=== PATIENT | female | born 1985 | race Caucasian/White ===

== ENCOUNTER → 2016-06-19 | Outpatient (CLI) | payer OTHER ==
[~2016-06-19] MED LIST: GABA100C4 PO; LAMO150 PO; NORG1TAB2 PO; OXCA150T PO; Z.0.BCPILL PO
[2016-06-19 13:24] LABS: HEMATOCRIT 38.9 % (35.0-46.0); MEAN CELL VOLUME 91.1 FL (80.0-100.0); MEAN CORPUSCULAR HEMOGLOBIN 31.2 PG (27.0-34.0); MEAN CORPUSCULAR HGB CONC 34.3 % (32.0-36.0); PLATELET COUNT 195 TH/MM3 (150-450); RED BLOOD COUNT 4.27 MIL/MM3 (4.00-5.30); RED CELL DISTRIBUTION WIDTH 12.6 % (11.6-17.2); REVIEW FLAG FINAL; WHITE BLOOD COUNT 7.7 TH/MM3 (4.0-11.0)
== END ==
LOC: PHPRE 11:36
PROVIDERS: ATTEND Obstetrics & Gynecology
DX: Z01.812 Encounter for preprocedural laboratory examination (principal); N94.4 Primary dysmenorrhea; G40.909 Epilepsy, unspecified, not intractable, without status epilepticus; N94.10 Unspecified dyspareunia
CPT/HCPCS: 36415; 80175; 80183; 85027

== ENCOUNTER → 2016-06-21 | Day surgery (SDC) | payer OTHER ==
[~2016-06-21] VITALS: Ht 165.1 cm; Wt 51.8 kg
[~2016-06-21] MED LIST changes: +KETOROLAC TROMETHAMINE 30 MG/ML (IVP) VIAL IV PUSH ONE; +LACTATED RINGER'S 1000 ML INJ 1,000 ML ONE; +MIDAZOLAM HCL 2 MG/2 ML VIAL ONE; +NEOSTIGMINE 3 MG/3 ML SYR IV ONE; +ONDANSETRON HCL 4 MG/2 ML VIAL IM PRN; +ONDANSETRON HCL 4 MG/2 ML VIAL IV PUSH ONE; +PROPOFOL 200 MG/20 ML AMP IV ONE; -Z.0.BCPILL PO; +fentaNYL CITRATE 250 MCG/5 ML AMP ONE; +oxyCODONE/ACETAMINOPHEN 5 MG/325 MG TAB ONE; +oxyCODONE/ACETAMINOPHEN 7.5 MG/325 MG TAB PO PRN
[2016-06-21 06:48] VITALS: BP 100/48; PULSE 68; RESP 20; TEMP 97.9; O2SAT 100
[2016-06-21 08:41] VITALS: PULSE 83; TEMP 97.9
[2016-06-21 09:00] VITALS: BP 115/66; PULSE 55; RESP 16; O2SAT 98
--- NOTE | 2016-06-21 10:23 | MP ---
cc: CARMEN PAGAN MD DATE OF SURGERY: 06/21/2016 PREOPERATIVE DIAGNOSIS Pelvic pain secondary deep dyspareunia. POSTOPERATIVE DIAGNOSIS Pelvic pain secondary deep dyspareunia, left pelvic varicosity. OPERATION Diagnostic laparoscopy. SURGEON Dr. Pagan. ANESTHESIA ___ general endotracheal. COMPLICATIONS None. ESTIMATED BLOOD LOSS 50 ccs. INDICATION This 1, para 1 has had progressive deep dyspareunia and increasing dysmenorrhea. The patient's history and exam were suspicious for endometriosis. FINDINGS At the time of surgery the patient was found to have a left pelvic varicosity retroperitoneal between her iliac vein and uterine vein. The exact origin of the vessel was difficult to determine laparoscopically. PROCEDURE The patient was taken to the operating room, placed supine on the operating table. After general endotracheal anesthetic she was prepped and draped in dorsal lithotomy position with low stirrups. An open-sided speculum was used to place a [id number] uterine manipulator. Attention was then turned to the abdomen. A 1 cm incision was made in the umbilicus. Veress needle was inserted. 5 liters of CO2 were instilled without difficulty. Laparoscopic trocar was introduced followed by the camera and using transillumination a left port was placed. Manipulation and a Trendelenburg position revealed the findings described above. Photographs were taken. The left port was removed under direct visualization and the camera port was removed after releasing the pneumoperitoneum. The incisions were closed with 3-0 Monocryl subcuticularly followed by Dermabond. The instrument was removed from the vagina and the patient was taken to the recovery room awake and breathing on her own. She tolerated the procedure well. Sponge, needle and instrument counts were correct. Carmen Pagan MD PMF/TLL /8:45 AM /10:09 AM
== END | disposition home or self-care (01) ==
LOC: PHSDC 06:10
PROVIDERS: ATTEND Obstetrics & Gynecology
DX: N94.12 Deep dyspareunia (principal); I86.2 Pelvic varices; G40.909 Epilepsy, unspecified, not intractable, without status epilepticus; Z88.8 Allergy status to other drugs, medicaments and biological substances; Z87.891 Personal history of nicotine dependence
CPT/HCPCS: 49320; J2250; J2405; J2710; J3010; J7120

== ENCOUNTER 2017-04-06 17:50 | Emergency (ER) | payer OTHER ==
[~2017-04-06] VITALS: Ht 165.1 cm; Wt 53.5 kg
[~2017-04-06 17:50] MED LIST changes: -KETOROLAC TROMETHAMINE 30 MG/ML (IVP) VIAL IV PUSH ONE; -LACTATED RINGER'S 1000 ML INJ 1,000 ML ONE; -MIDAZOLAM HCL 2 MG/2 ML VIAL ONE; -NEOSTIGMINE 3 MG/3 ML SYR IV ONE; -NORG1TAB2 PO; -ONDANSETRON HCL 4 MG/2 ML VIAL IM PRN; -ONDANSETRON HCL 4 MG/2 ML VIAL IV PUSH ONE; -PROPOFOL 200 MG/20 ML AMP IV ONE; -fentaNYL CITRATE 250 MCG/5 ML AMP ONE; -oxyCODONE/ACETAMINOPHEN 5 MG/325 MG TAB ONE; -oxyCODONE/ACETAMINOPHEN 7.5 MG/325 MG TAB PO PRN
[2017-04-06 17:57] VITALS: BP 127/63; PULSE 72; RESP 16; TEMP 98.3; O2SAT 100
[2017-04-06] MEDS ORDERED: PENI500T PO (19:09)
--- NOTE | 2017-04-06 19:09 | PD ---
HPI Chief Complaint: Oral / Dental Pain or Problem Time Seen by Provider: 18:46 Travel History International Travel<30 days: No Contact w/Intl Traveler<30days: No Traveled to known affect area: No History of Present Illness HPI This is a 31-year-old female here with right lower dental pain 3 days. Denies fever chills. Pain is at the site of a decayed and cracked tooth. Symptom severity is moderate. No aggravating or alleviating factors. Patient also believes she may be and is requesting testing. Denies abdominal pain, vaginal bleeding, vaginal discharge. PFSH Past Medical History Cancer: No Cardiovascular Problems: No Diabetes: No Diminished Hearing: No Endocrine: No Genitourinary: No Hepatitis: No Hiatal Hernia: No Immune Disorder: No Musculoskeletal: Yes (BACK PROBLEMS FROM ALL OF HER SEIZURE ACTIVITY) Neurologic: Yes (SEIZURES SINCE 14) Psychiatric: No Reproductive: No Respiratory: No Immunizations Current: Yes Seizures: Yes Thyroid Disease: No Tetanus Vaccination: Unknown Influenza Vaccination: No ?: Unknown LMP: ONE MONTH Past Surgical History Abdominal Surgery: Yes (laparoscopy) AICD: No Cardiac Surgery: No Ear Surgery: No Endocrine Surgery: No Eye Surgery: No Genitourinary Surgery: No Gynecologic Surgery: No Joint Replacement: No Oral Surgery: No Pacemaker: No Thoracic Surgery: No Social History Alcohol Use: No Tobacco Use: Yes (electic cigarrette) Substance Use: Yes (hx marijuana USE DAILY) Allergies-Medications (Allergen,Severity, Reaction): Coded Allergies: phenytoin (Unverified Allergy, Severe, Hives, 04/06/17) Reported Meds & Prescriptions Reported Meds & Active Scripts Active Reported Oxcarbazepine 150 Mg Tab 150 Mg PO BID Gabapentin 100 Mg Cap 500 Mg PO BID Lamictal (Lamotrigine) 150 Mg Tab 300 Mg PO BID Review of Systems Except as stated in HPI: all other systems reviewed are Neg General / Constitutional: No: Fever Physical Exam Narrative GENERAL: Alert and well-appearing 31-year-old female SKIN: Warm and dry. HEAD: Normocephalic. EYES: No injection or drainage. MOUTH: Widespread dental decay. Right lower premolar decayed with surrounding gum erythema. No swelling of the floor the mouth. Uvula is midline. Airway is patent. NECK: Supple. CARDIOVASCULAR: Regular rate and rhythm RESPIRATORY: Breath sounds equal bilaterally. No accessory muscle use. GASTROINTESTINAL: Abdomen soft, non-tender, nondistended. Data Data Last Documented VS Vital Signs Date Time Temp Pulse Resp B/P (MAP) Pulse Ox O2 Delivery O2 Flow Rate FiO2 04/06/17 17:57 98.3 72 16 127/63 (84) 100 Orders Orders Ed Urine Pregnancytest Poc (04/06/17 18:09) MDM Medical Decision Making Medical Screen Exam Complete: Yes Emergency Medical Condition: Yes Differential Diagnosis Dental abscess, dental caries, dentalgia Narrative Course This is a 31-year-old female here with localized dental infection. Urine test is positive. Patient reports she is approximately 4 weeks . No abdominal pain, vaginal discharge, vaginal bleeding. She'll be treated for dental infection with penicillin. Instructed to follow-up with her CUSTOMER OPERATIONS REPRESENTATIVE. Diagnosis Primary Impression: Pain, dental Additional Impression: Qualified Codes: Z3A.01 - Less than 8 weeks gestation of Referrals: Dentist Customer Operations Representative Additional Instructions: Antibiotics as directed. Follow-up with her dentist. Follow-up with her CUSTOMER OPERATIONS REPRESENTATIVE. Scripts Penicillin V Potassium (Penicillin V Potassium) 500 Mg Tab 500 MG PO Q6H for Infection for 7 Days, #28 TAB 0 Refills Prov: Jaz James 04/06/17 Disposition: 01 DISCHARGE HOME Condition: Stable Jaz James Apr 06, 2017 19:09
== END 2017-04-06 19:15 | disposition home or self-care (01) ==
LOC: PHEFT 17:50
DX: O99.611 Diseases of the digestive system complicating pregnancy, first trimester (principal); K08.89 Other specified disorders of teeth and supporting structures; K02.9 Dental caries, unspecified; O99.321 Drug use complicating pregnancy, first trimester; F12.90 Cannabis use, unspecified, uncomplicated; O99.331 Smoking (tobacco) complicating pregnancy, first trimester; F17.290 Nicotine dependence, other tobacco product, uncomplicated; Z3A.01 Less than 8 weeks gestation of pregnancy
CPT/HCPCS: 84703; 99283

== ENCOUNTER 2017-04-23 11:12 | Emergency (ER) | payer OTHER ==
[~2017-04-23] VITALS: Ht 165.1 cm; Wt 53.0 kg
[~2017-04-23 11:12] MED LIST changes: +PENI500T PO
[2017-04-23 11:18] VITALS: BP 116/64; PULSE 99; RESP 18; TEMP 98.4; O2SAT 98
[2017-04-23] MEDS ORDERED: SODIUM CHLORIDE 0.9% FLUSH 10 ML FLUSH IV FLUSH PRN (12:00)
[2017-04-23] MEDS ORDERED: ONDANSETRON HCL 4 MG/2 ML VIAL IVP ONE (12:00)
--- NOTE | 2017-04-23 12:12 | PD ---
HPI Chief Complaint: GI Complaint Time Seen by Provider: 11:46 Travel History International Travel<30 days: No Contact w/Intl Traveler<30days: No Traveled to known affect area: No History of Present Illness HPI Patient states she is about 6-1/2 weeks , denies any vaginal bleeding. Patient does complain of nausea and vomiting onset since 1-1/2 days ago. Patient denies any active diarrhea fever rash abdominal pain back pain headache or chest pain. Patient denies any alleviating factors, but it gets aggravated with any oral intake Patient says he has allergy to Dilantin Past medical history significant for seizure activity/epilepsy/, laparoscopy to evaluate for endometriosis. PFSH Past Medical History Cancer: No Cardiovascular Problems: No Diabetes: No Diminished Hearing: No Endocrine: No Genitourinary: No Hepatitis: No Hiatal Hernia: No Immune Disorder: No Musculoskeletal: Yes (BACK PROBLEMS FROM ALL OF HER SEIZURE ACTIVITY) Neurologic: Yes (SEIZURES SINCE 14) Psychiatric: No Reproductive: No Respiratory: No Immunizations Current: Yes Seizures: Yes (Epilepsy ) Thyroid Disease: No Tetanus Vaccination: > 5 Years Influenza Vaccination: No ?: LMP: Early March Past Surgical History Abdominal Surgery: Yes (Laparoscopy) AICD: No Cardiac Surgery: No Ear Surgery: No Endocrine Surgery: No Eye Surgery: No Genitourinary Surgery: No Gynecologic Surgery: No Joint Replacement: No Oral Surgery: No Pacemaker: No Thoracic Surgery: No Social History Alcohol Use: No Tobacco Use: No Substance Use: Yes (Marijuana daily ) Allergies-Medications (Allergen,Severity, Reaction): Coded Allergies: phenytoin (Unverified Allergy, Severe, Hives, 04/23/17) Reported Meds & Prescriptions Reported Meds & Active Scripts Active Reported Oxcarbazepine 150 Mg Tab 75 Mg PO BID Gabapentin 100 Mg Cap 500 Mg PO BID Lamictal (Lamotrigine) 150 Mg Tab 150 Mg PO BID Review of Systems General / Constitutional: No: Fever Eyes: No: Visual changes HENT: No: Headaches Cardiovascular: No: Chest Pain or Discomfort Respiratory: No: Shortness of Breath Gastrointestinal: Positive: Nausea, Vomiting Genitourinary: No: Dysuria Musculoskeletal: No: Pain Skin: No Rash Neurologic: No: Weakness Psychiatric: No: Depression Endocrine: No: Polydipsia Hematologic/Lymphatic: No: Easy Bruising Physical Exam Narrative GENERAL: SKIN: Warm and dry. HEAD: Atraumatic. Normocephalic. EYES: Pupils equal and round. No scleral icterus. No injection or drainage. ENT: No nasal bleeding or discharge. Mucous membranes pink and moist. NECK: Trachea midline. No JVD. CARDIOVASCULAR: Regular rate and rhythm. RESPIRATORY: No accessory muscle use. Clear to auscultation. Breath sounds equal bilaterally. GASTROINTESTINAL: Abdomen soft, non-tender, nondistended. MUSCULOSKELETAL: Extremities without clubbing, cyanosis, or edema. No obvious deformities. NEUROLOGICAL: Awake and alert. No obvious cranial nerve deficits. Motor grossly within normal limits. Five out of 5 muscle strength in the arms and legs. Normal speech. PSYCHIATRIC: Appropriate mood and affect; insight and judgment normal. Data Data Last Documented VS Vital Signs Date Time Temp Pulse Resp B/P (MAP) Pulse Ox O2 Delivery O2 Flow Rate FiO2 04/23/17 12:20 98 Room Air 04/23/17 11:35 16 04/23/17 11:18 98.4 99 116/64 (81) Orders Orders Complete Blood Count With Diff (04/23/17 11:46) Comprehensive Metabolic Panel (04/23/17 11:46) Lipase (04/23/17 11:46) Urinalysis - C+S If Indicated (04/23/17 11:46) Iv Access Insert/Monitor (04/23/17 11:46) Ecg Monitoring (04/23/17 11:46) Oximetry (04/23/17 11:46) NPO (04/23/17 11:46) Ondansetron Inj (Zofran Inj) (04/23/17 12:00) Sodium Chloride 0.9% Flush (Ns Flush) (04/23/17 12:00) Labs Laboratory Tests Test 04/23/17 12:10 White Blood Count 9.3 TH/MM3 Red Blood Count 4.88 MIL/MM3 Hemoglobin 14.3 GM/DL Hematocrit 42.3 % Mean Corpuscular Volume 86.7 FL Mean Corpuscular Hemoglobin 29.2 PG Mean Corpuscular Hemoglobin Concent 33.7 % Red Cell Distribution Width 13.8 % Platelet Count 246 TH/MM3 Mean Platelet Volume 8.4 FL Neutrophils (%) (Auto) 70.8 % Lymphocytes (%) (Auto) 16.1 % Monocytes (%) (Auto) 11.7 % Eosinophils (%) (Auto) 0.5 % Basophils (%) (Auto) 0.9 % Neutrophils # (Auto) 6.6 TH/MM3 Lymphocytes # (Auto) 1.5 TH/MM3 Monocytes # (Auto) 1.1 TH/MM3 Eosinophils # (Auto) 0.0 TH/MM3 Basophils # (Auto) 0.1 TH/MM3 CBC Comment DIFF FINAL Differential Comment Urine Collection Type VOIDED Urine Color YELLOW Urine Turbidity CLEAR Urine pH 6.0 Urine Specific [place] GREATER/EQUAL 1.030 Urine Protein 30 mg/dL Urine Glucose (UA) NEG mg/dL Urine Ketones TRACE mg/dL Urine Occult Blood NEG Urine Nitrite NEG Urine Bilirubin NEG Urine Urobilinogen 0.2 MG/DL Urine Leukocyte Esterase NEG Urine WBC 0-2 /hpf Urine Mucus FEW /lpf Microscopic Urinalysis Comment CULT NOT INDICATED Blood Urea Nitrogen 7 MG/DL Creatinine 0.56 MG/DL Random Glucose 94 MG/DL Total Protein 8.4 GM/DL Albumin 4.1 GM/DL Calcium Level 9.3 MG/DL Alkaline Phosphatase 107 U/L Aspartate Amino Transf (AST/SGOT) 12 U/L Alanine Aminotransferase (ALT/SGPT) 19 U/L Total Bilirubin 0.3 MG/DL Sodium Level 135 MEQ/L Potassium Level 3.7 MEQ/L Chloride Level 103 MEQ/L Carbon Dioxide Level 24.9 MEQ/L Anion Gap 7 MEQ/L Estimat Glomerular Filtration Rate 125 ML/MIN Lipase 77 U/L [facility] Medical Decision Making Medical Screen Exam Complete: Yes Emergency Medical Condition: Yes Medical Record Reviewed: Yes Differential Diagnosis Gastroenteritis viral versus bacterial versus hepatitis versus pancreatitis Narrative Course Urine does not show evidence of a UTI CBC does not show any leukocytosis, anemia.... normal platelet count and no left shift. Chemistry shows normal electrolytes, normal kidney/liver/pancreatic functions. Procedures Procedure Narrative Bedside pelvic ultrasound transabdominal performed by or showed an IUP, with heart tones 140s. Diagnosis Primary Impression: Vomiting secondary to Patient Instructions: General Instructions, Nausea and Vomiting in ( ED) Scripts Ondansetron Odt (Zofran Odt) 4 Mg Tab 4 MG SL Q6HR Y for Nausea/Vomiting, #12 TAB 0 Refills Prov: Roc Flor MD 04/23/17 Disposition: 01 DISCHARGE HOME Condition: Stable Roc Flor MD Apr 23, 2017 12:12
[2017-04-23 12:20] VITALS: O2SAT 98
[2017-04-23 12:25] LABS: AUTOMATED NEUTROPHIL # 6.6 TH/MM3 (1.8-7.7); BASOPHIL # 0.1 TH/MM3 (0-0.2); BASOPHIL % 0.9 % (0.0-2.0); EOSINOPHIL % 0.5 % (0.0-4.0); HEMATOCRIT 42.3 % (35.0-46.0); HEMOGLOBIN 14.3 GM/DL (11.6-15.3); LYMPH % 16.1 % (9.0-44.0); LYMPHOCYTE # 1.5 TH/MM3 (1.0-4.8); MEAN CELL VOLUME 86.7 FL (80.0-100.0); MEAN CORPUSCULAR HEMOGLOBIN 29.2 PG (27.0-34.0); MEAN CORPUSCULAR HGB CONC 33.7 % (32.0-36.0); MEAN PLATELET VOLUME 8.4 FL (7.0-11.0); MONO % 11.7 % (0.0-8.0); MONOCYTE # 1.1 TH/MM3 (0-0.9); NEUT % 70.8 % (16.0-70.0); PLATELET COUNT 246 TH/MM3 (150-450); RED BLOOD COUNT 4.88 MIL/MM3 (4.00-5.30); RED CELL DISTRIBUTION WIDTH 13.8 % (11.6-17.2); WHITE BLOOD COUNT 9.3 TH/MM3 (4.0-11.0)
[2017-04-23 12:26] LABS: BILIRUBIN, URINE NEG (NEG); BLOOD, URINE NEG (NEG); GLUCOSE,URINE NEG (NEG); KETONE, URINE TRACE mg/dL (NEG); NITRITE,URINE NEG (NEG); URINE COLOR YELLOW (YELLW/STRAW); URINE LEUKOCYTE ESTERASE NEG (NEG)
[2017-04-23 12:36] LABS: CHLORIDE 103 MEQ/L (98-107); SODIUM (NA) 135 MEQ/L (136-145)
[2017-04-23 12:40] LABS: ALBUMIN 4.1 GM/DL (3.4-5.0); BICARBONATE 24.9 MEQ/L (21.0-32.0); CALCIUM 9.3 MG/DL (8.5-10.1); GLUCOSE,RANDOM 94 MG/DL (74-106)
[2017-04-23 12:41] LABS: BLOOD UREA NITROGEN 7 MG/DL (7-18)
[2017-04-23 12:43] LABS: ALT (GPT) 19 U/L (10-53); AST (GOT) 12 U/L (15-37); CREATININE 0.56 MG/DL (0.50-1.00); GLOMERULAR FILTRATION RATE 125 ML/MIN (>89)
[2017-04-23 12:45] LABS: TOTAL BILIRUBIN ADULT 0.3 MG/DL (0.2-1.0); TOTAL PROTEIN 8.4 GM/DL (6.4-8.2)
[2017-04-23 12:46] LABS: ALKALINE PHOSPHATASE 107 U/L (45-117)
[2017-04-23 13:00] LABS: MUCUS URINE FEW /lpf (OCC); WBC, URINE 0-2 /hpf (0-5)
[2017-04-23] MEDS ORDERED: ZOFR4TAB3 SL (13:42)
[2017-04-23 13:55] VITALS: BP 120/69; PULSE 78; RESP 14; O2SAT 98
== END 2017-04-23 14:00 | disposition home or self-care (01) ==
LOC: PHED 11:12
DX: O21.9 Vomiting of pregnancy, unspecified (principal); Z3A.01 Less than 8 weeks gestation of pregnancy
CPT/HCPCS: 80053; 81001; 83690; 85025; 96374; 99284; J2405